=== PATIENT | male | born 1995 | race African-American/Black ===

== ENCOUNTER 2016-07-13 17:15 | Emergency (ER) | END 2016-07-13 18:00 | disposition left against medical advice (07) | LOC: ED 17:15 | DX: D57.00 Hb-SS disease with crisis, unspecified (principal) ==

== ENCOUNTER 2016-09-05 14:15 | Inpatient (IN) ==
--- NOTE | 2016-09-05 16:42 | PROVIDER DOCUMENTATION ---
HPI-General Adult <Bushra Vázquez - Last Filed: 09/05/16 16:42> - General Source: patient - History of Present Illness -Gen Adult Nature of Presenting Problems: Pt is a 21 y/o AA male chief complaint of lower lumbar back pain and cough and cold symptoms that he believes are related to his sickle cell disease. Pt was last discharged from this hospital 12 days ago after a 2 day treatment for sickle cell crisis. Pt has a long h/o sickle cell dz but does not often come to the hospital. He is managed by Dr. Benedict (Heme/Onc). On arrival, pt is afebrile and in minimal distress. <Phil Butts - Last Filed: 09/05/16 18:49> - General Chief Complaint: Sickle Cell Crisis Stated Complaint: SICKLE CELL/ FLU SX Time Seen by Provider: 09/05/16 16:38 Allergies/Adverse Reactions: Patient Allergies Allergy/AdvReac Type Severity Reaction Status Date / Time adhesive tape Allergy Mild RASH Verified 09/05/16 16:26 latex Allergy Mild RASH Verified 09/05/16 16:26 meperidine [Meperidine] Allergy Mild ITCHING Verified 09/05/16 16:26 morphine Allergy Mild ITCHING Verified 09/05/16 16:26 Home Medications: Home Medication List Medication Instructions Recorded Confirmed Last Taken Type No Home Medications 09/05/16 09/05/16 Unknown History Review of Systems - Adult - REVIEW OF SYSTEMS - ADULT Constitutional: reports: no symptoms reported. denies: chills, fatique Eyes: reports: no symptoms reported. denies: blurred vision, double vision Ears, Nose, Mouth & Throat: reports: no symptoms reported. denies: ear pain, nose pain, throat swelling Cardiovascular: reports: chest pain. denies: orthopnea Respiratory: reports: cough, shortness of breath, wheezing Gastrointestinal: reports: no symptoms reported. denies: abdominal pain, nausea Genitourinary: reports: no symptoms reported. denies: dysuria, hematuria Musculoskeletal: reports: bone pain, back pain, muscle aches. denies: joint pain, joint swelling Integumentary: reports: no symptoms reported. denies: hives, itching Neurological: reports: no symptoms reported. denies: numbness, paresthesia Psychiatric: reports: no symptoms reported. denies: anxiety, emotional problems Endocrine: reports: no symptoms reported. denies: cold intolerance, heat intolerance Hematologic/Lymphatic: reports: no symptoms reported. denies: blood clots, low blood count Allergic/Immunologic: reports: no symptoms reported. denies: allergic reactions , food allergy All Other Systems: Reviewed and Negative <Phil Butts - Last Filed: 09/05/16 18:49> Past History - Adult - PAST MEDICAL HISTORY-ADULT Review of Records: reports: Nursing Assessment Review Respiratory: reports: asthma Musculoskeletal: reports: other (AVN R hip) Endocrine/Immune: reports: Sickle Cell disease Sickle Cell Genotype:: SC - PRIOR SURGERIES/PROCEDURES Surgical/Procedure History: reports: cholecystectomy - IMMUNIZATION STATUS Childhood Immunizations: See Nurse Assessment Flu Vaccine: See Nurse Assessment - FAMILY HISTORY Family History: sickle cell disease/trait <Bushra Vázquez - Last Filed: 09/05/16 16:42> - PAST MEDICAL HISTORY-ADULT Review of Records: reports: Old Records Reviewed, Nursing Assessment Review, Medications Reviewed, Social history reviewed & non-contributory. Major Childhood Illnesses: reports: denies history Cardiovascular: reports: denies history Respiratory: reports: asthma Gastrointestinal: reports: denies history Obstetrical/Gynecological: reports: denies history Genitourinary: reports: denies history Musculoskeletal: reports: denies history Neurological: reports: denies history Endocrine/Immune: reports: Sickle Cell disease Other Conditions: reports: denies history - PRIOR SURGERIES/PROCEDURES Surgical/Procedure History: reports: none - IMMUNIZATION STATUS Childhood Immunizations: See Nurse Assessment Flu Vaccine: See Nurse Assessment - FAMILY HISTORY Family History: reviewed, not pertinent - SOCIAL HISTORY Smoking: denies Substance Use: none/never Alcohol Use Frequency: never Number of drinks per typical drinking period:: 2 drinks Living Situation: family <Phil Butts - Last Filed: 09/05/16 18:49> Physical Exam-General - PHYSICAL EXAM-ADULT Initial Vital Signs Reviewed: Yes - CONSTITUTIONAL General Appearance: appears well, alert, no apparent distress - EYES Eyes: PERRL/EOMI, pink conjunctivae - HEAD, EARS, NOSE, MOUTH & THROAT HENMT: normocephalic/atraumatic, moist mucous membranes, normal ENT inspection - NECK Neck: non-tender - RESPIRATORY Respiratory: chest non-tender, wheezing - CARDIOVASCULAR Cardiovascular: normal peripheral pulses, regular rate, rhythm, no edema - GASTROINTESTINAL (ABDOMEN) Abdominal Exam: normal bowel sounds, non tender, soft - MUSCULOSKELETAL Back Exam: decreased range of motion, muscle spasm, vertebral tenderness. negative: swelling Extremity: normal range of motion, non-tender, normal gait - SKIN Integumentary: normal color, normal turgor, warm/dry - NEUROLOGIC Neurologic: grossly normal, no motor/sensory deficits <Phil Butts - Last Filed: 09/05/16 18:49> Progress - PLAN OF CARE/RESULTS Progress/Plan/Lab Results: Orders Category Date Time Status CBC WITH ELECTRONIC DIFF [HEME] Stat Lab 09/05/16 16:08 Results COMPREHENSIVE METABOLIC PANEL [CHEM] Stat Lab 09/05/16 16:08 Received Flu Swab [INFLUENZA SCREEN A/B] Stat Lab 09/05/16 14:29 Received RETIC COUNT [HEME] Stat Lab 09/05/16 16:08 Results UA Reflex [URINALYSIS W/POSS RFLX CULT] [URINALYSIS] Lab 09/05/16 14:46 Uncollected Stat Vital Signs - 24 hr 09/05/16 14:27 Temperature 98.7 F Pulse Rate 107 H Respiratory 22 Rate Blood Pressure 119/60 O2 Sat by Pulse 100 Oximetry <Bushra Vázquez - Last Filed: 09/05/16 16:42> - PLAN OF CARE/RESULTS Progress/Plan/Lab Results: Orders Category Date Time Status Oxygen Therapy- ED Nursing DIRECTED Care 09/05/16 16:44 Active CHEST-2 VIEWS [RAD] Stat Exams 09/05/16 17:59 Taken BLOOD CULTURE [BLDCUL] Stat Lab 09/05/16 18:20 Uncollected CBC WITH ELECTRONIC DIFF [HEME] Stat Lab 09/05/16 16:08 Completed COMPREHENSIVE METABOLIC PANEL [CHEM] Stat Lab 09/05/16 16:08 Completed DIRECT STREP Stat Lab 09/05/16 14:29 Completed Flu Swab [INFLUENZA SCREEN A/B] Stat Lab 09/05/16 14:29 Completed RETIC COUNT [HEME] Stat Lab 09/05/16 16:08 Completed UA Reflex [URINALYSIS W/POSS RFLX CULT] [URINALYSIS] Lab 09/05/16 17:53 Completed Stat 0.9% Sodium Chloride Inj [Ns] 1,000 ml Med 09/05/16 16:44 Discontinued IV 999 mls/hr Albuterol 2.5MG/Ipratrop 0.5MG [Duoneb (A & A)] Med 09/05/16 18:22 Discontinued 6 ml INH NOW ONE CefTRIAXONE 1 GM/NS [Rocephin 1 gm/Ns] 50 ml Med 09/05/16 18:20 Discontinued IV NOW Dexamethasone [Decadron] Med 09/05/16 18:20 Discontinued 10 mg IV NOW ONE Hydromorphone [Dilaudid] Med 09/05/16 16:44 Discontinued 1 mg IV NOW ONE Promethazine [Phenergan] Med 09/05/16 16:44 Discontinued 12.5 mg IV NOW ONE Sodium Chloride 0.9% Med 09/05/16 16:44 Discontinued 10 ml INJ NOW ONE Aerosol Treatments Routine Oth 09/05/16 18:22 Completed Aerosol Treatments Stat Oth 09/05/16 18:22 Completed Transfer/Admit Order [TRANSFER] Routine Transfer 09/05/16 18:42 Ordered Laboratory Tests 09/05/16 09/05/16 09/05/16 16:08 16:08 17:53 WBC 21.81 H RBC 4.46 L Hgb 10.1 L Hct 29.4 L MCV 65.9 L MCH 22.6 L MCHC 34.4 RDW Std Deviation 22.7 H Plt Count 361 MPV 9.1 Neut % (Auto) Not Reportable Lymph % (Auto) Not Reportable Saline % (Auto) Not Reportable Eos % (Auto) Not Reportable Baso % (Auto) 0.1 Neut # (Auto) Not Reportable Lymph # (Auto) Not Reportable Saline # (Auto) Not Reportable Eos # (Auto) Not Reportable Baso # (Auto) 0.03 Corrected WBC (Man) 16.60 Segmented Neutrophils 84 H Band Neutrophils 1 Lymphocytes 7 L Monocytes 8 Nucleated RBCs 31 H Poikilocytosis 1+ Anisocytosis 3+ Sickle Cells OCCASIONAL Target Cells 3+ Percent Retic 6.26 H Retic Hgb Equivalent 24.0 L Sodium 139 Potassium 3.9 Chloride 101 Carbon Dioxide 21 L Anion Gap 17 BUN 6 L Creatinine 0.6 L Estimated GFR/1.73 m2 > 60 BUN/Creatinine Ratio 10 Glucose 85 Calculated Osmolality 274 Calcium 9.4 Total Bilirubin 4.36 H AST 26 ALT 17 Alkaline Phosphatase 75 Total Protein 8.4 H Albumin 4.8 Globulin 3.6 Albumin/Globulin Ratio 1.3 Urine Source CLEAN CATCH Urine Color YELLOW Urine Turbidity CLEAR Urine pH 7.0 Ur Specific [place] 1.010 Urine Protein NEGATIVE Ur Glucose (Stick) NEGATIVE Ur Ketones (Stick) NEGATIVE Urine Blood NEGATIVE Urine Nitrite NEGATIVE Urine Bilirubin NEGATIVE Urobilinogen Dipstick 2 A Urine Leukocytes NEGATIVE Urine WBC (Auto) <10 Urine RBC (Auto) <10 U Epithel Cells (Auto) <10 Urine Bacteria (Auto) NEGATIVE Vital Signs - 24 hr 09/05/16 09/05/16 09/05/16 14:27 18:01 18:34 Temperature 98.7 F 99.5 F Pulse Rate 107 H 107 H 100 H Respiratory 22 20 16 Rate Blood Pressure 119/60 120/78 O2 Sat by Pulse 100 98 99 Oximetry - XRAY 1 XRAY Study: Chest Impression: Normal XRAY Interpretation: NO PNA - CONSULTS/PCP/HOSPITALIST Notification #1 *Consult/PCP/Hospitalist*: Dr. Mueller (Hospitalist) Time Discussed: 18:43 Reason/Comments: Will see in the ER and admit and send to [facility] <Phil Butts - Last Filed: 09/05/16 18:49> Departure <Bushra Vázquez - Last Filed: 09/05/16 16:42> - Departure Time of Disposition Order: 18:43 Certified Medical Emergency: Emergent <Phil Butts - Last Filed: 09/05/16 18:49> - Departure DIAGNOSIS: Sickle cell crisis Leukocytosis Qualifiers: Leukocytosis type: unspecified Qualified Code(s): D72.829 - Elevated white blood cell count, unspecified Disposition: ADMITTED INPATIENT 09 Condition: Stable Attestation - Scribe Verification/Attestation Scribe:: Bushra Vázquez Acting as Scribe for:: Phil Butts Scribe documention review:: This chart was documented by a scribe and accurately reflects the service the provider performed and the decisions made by the provider. <Bushra Vázquez - Last Filed: 09/05/16 16:42> - Physician/ ADOLFO Attestation Patient care was provided by Advanced Practice Provider:: Yes Advanced Practice Provider:: Phil Butts Advanced Practice Provider documentation review:: The Mid-level provider documentation, treatment plan and medical decision making was reviewed by the physician who agrees with all treatment and medical decision making by the MLP. <Phil Butts - Last Filed: 09/05/16 18:49> Physician Attestation - Physician Attestation I, the provider, attest to the following statement:: Phil Butts Physician documentation Attestation:: This documentation recorded by the scribe accurately reflects the service I personally performed and the decisions made by me. <Phil Butts - Last Filed: 09/05/16 18:49>
[2016-09-05] MEDS ORDERED: DILAUDID IV ONE ×2 (16:44→19:42)
[2016-09-05] MEDS ORDERED: PHENERGAN IV ONE (16:44)
[2016-09-05] MEDS ORDERED: SODIUM CHLORIDE 0.9% INJ ONE (16:44)
[2016-09-05] MEDS ORDERED: NS 1,000 ML IV ONE (16:44)
[2016-09-05 16:49] LABS: BASO% 0.1 % (0.0-0.8); HEMATOCRIT 29.4 % (42.0-52.0); HEMOGLOBIN 10.1 g/dL (14.0-18.0); MANUAL DIFF NEEDED? YES; MCH 22.6 PG (27-31); MCHC 34.4 g/dL (33-37); MCV 65.9 FL (81-99); MPV 9.1 FL (7.4-10.4); PLT 361 X1000 (130-400); RBC 4.46 XMIL (4.7-6.1); RETIC% 6.26 % (0.8-2.1)
[2016-09-05 17:04] LABS: BANDS 1 % (0-1); LYMPHS 7 % (21-51); MONO 8 % (1-9); NRBC 31 % (0-0)
[2016-09-05 17:05] LABS: TARGET CELLS 3+
[2016-09-05 17:13] LABS: AGAP 17; ALBUMIN 4.8 g/dL (3.5-5.0); ALKALINE PHOSPHATASE 75 U/L (32-122); BUN 6 mg/dL (8-22); CALCIUM 9.4 mg/dL (8.8-10.2); CHLORIDE 101 mmol/L (98-107); COSMO 274; GOT 26 U/L (10-34); GPT 17 U/L (10-44); POTASSIUM 3.9 mmol/L (3.5-5.1); SODIUM 139 mmol/L (136-145); TCO2 21 mmol/L (25-35); TOTAL BILIRUBIN 4.36 mg/dL (0.20-1.00); TOTAL PROTEIN 8.4 g/dL (6.3-8.3)
[2016-09-05 17:58] LABS: URINE CULTURE NEEDED? NO; URINE MICRO REVIEW NEEDED? NO; URINE SOURCE CLEAN CATCH
[2016-09-05 18:03] LABS: BILIRUBIN URINE NEGATIVE (NEGATIVE); BLOOD URINE NEGATIVE (NEGATIVE); COLOR YELLOW; GLUCOSE URINE NEGATIVE (NEGATIVE); LEUKOCYTES URINE NEGATIVE (NEGATIVE); NITRITE URINE NEGATIVE (NEGATIVE); PROTEIN URINE NEGATIVE (NEGATIVE); TURBIDITY URINE CLEAR (CLEAR); UROBILINOGEN URINE 2 mg/dL (NORMAL)
[2016-09-05 18:04] LABS: UR EPITHELIAL CELLS <10 /HPF (<10); URINE BACTERIA NEGATIVE /HPF; URINE RBC <10 /HPF (<10); URINE WBC <10 /HPF (<10)
[2016-09-05] MEDS ORDERED: DECADRON IV ONE (18:20)
[2016-09-05] MEDS ORDERED: ROCEPHIN 1 GM/NS 50 ML IV ONE (18:20)
[2016-09-05] MEDS ORDERED: DUONEB (A & A) INH ONE (18:22)
[2016-09-05] MEDS ORDERED: TYLENOL PO ONE (19:43)
[2016-09-05] MEDS ORDERED: TYLENOL PO PRN (20:29)
[2016-09-05] MEDS ORDERED: ZOFRAN IV PRN (20:29)
[2016-09-05] MEDS: NS 1,000 ML IV SCH ×2 (21:38)
[2016-09-05] MEDS: BENADRYL IV PRN (23:15)
[2016-09-05] MEDS: DILAUDID IV PRN (23:16)
--- NOTE | 2016-09-05 23:34 | HISTORY AND PHYSICAL ---
CHIEF COMPLAINT: Back pain which is his common symptom and diffuse myalgias. HISTORY OF PRESENT ILLNESS: This is a 21-year-old male who comes in from home with known sickle cell crisis. He was here earlier this month with sickle cell crisis. Complaining of back pain which is his typical pain associated with sickle cell crisis. He has had upper respiratory type symptoms for the last several days, subjective fevers. He has been coughing with productive sputum. When he was here last he had basically same process sickle cell crisis and those issues. PAST MEDICAL HISTORY: Sickle cell disease, asthma, avascular necrosis. PAST SURGICAL HISTORY: 1. He has had cholecystectomy. 2. He has retinopathy and laser therapy. SOCIAL HISTORY: No tobacco, occasional tobacco about half a pack a day. No alcohol. FAMILY HISTORY: Two siblings with also sickle cell disease. MEDICATIONS: He is on folic acid and [place] which he should be on hydroxyurea. For some reason he has not been taking that medication. REVIEW OF SYSTEMS: Otherwise negative. PHYSICAL EXAMINATION: VITAL SIGNS: Blood pressure 120/78, heart rate of 100, respiratory 16, temperature 99.5 degrees, 99% on room air. GENERAL: Thin male in no acute distress. HEENT: Head normocephalic, atraumatic. Pupils equal, round, reactive to light. Extraocular movements were intact. He had moist mucous membranes. NECK: Supple. CARDIOVASCULAR EXAM: Was tachycardic and hyperdynamic. PULMONARY EXAM: Bilateral breath sounds without significant pathology noted abnormality. GI: Was soft, nontender, nondistended. Bowel sounds are positive. EXTREMITIES: No clubbing or cyanosis. LYMPHATICS: No peripheral edema. NEUROLOGICAL: Nonfocal. LABORATORY DATA: Showed reticulocyte count around 6% which is a little higher than it has been previously, hemoglobin and hematocrit is up to 10 and 29 but his white count is 21,000 although no bands mostly pure neutrophilia. Chemistries unremarkable. Chest x-ray reported clear. Urine is clear. PROBLEM LIST: 1. Sickle cell crisis. Will continue hydration, fluids, pain control and follow. 2. Leukocytosis without a clear defined etiology. We will continue his regular medications. I think will start hydroxyurea if I can if he does not I guess object. 3. Anemia. Actually appears to be fairly stable. Will continue to monitor. We will start empiric antibiotics and follow closely.
[2016-09-06] MEDS: BENADRYL IV PRN ×6 (02:40→23:13)
[2016-09-06] MEDS: DILAUDID IV PRN ×6 (02:41→23:13)
[2016-09-06 06:21] LABS: HEMATOCRIT 28.1 % (42.0-52.0); HEMOGLOBIN 9.3 g/dL (14.0-18.0); MCH 22.3 PG (27-31); MCHC 33.1 g/dL (33-37); MCV 67.4 FL (81-99); MPV 9.4 FL (7.4-10.4); RBC 4.17 XMIL (4.7-6.1)
[2016-09-06 06:35] LABS: AGAP 12; BUN 5 mg/dL (8-22); CALCIUM 9.2 mg/dL (8.8-10.2); CHLORIDE 103 mmol/L (98-107); COSMO 272; POTASSIUM 3.8 mmol/L (3.5-5.1); SODIUM 137 mmol/L (136-145); TCO2 22 mmol/L (25-35)
--- NOTE | 2016-09-06 06:43 | Diag Imaging Result Document ---
PROCEDURE NAME: CHEST-2 VIEWS - 09/05/2016 FRONTAL AND LATERAL CHEST, TWO VIEWS: COMPARISON: Compared to 03/01/2016. FINDINGS: The lungs are well expanded. The heart is not enlarged. The vessels are not distended. There are no infiltrates. No pleural effusions. Mild scoliosis. IMPRESSION: No pneumonia.
[2016-09-06] MEDS: HYDREA PO SCH (10:07)
[2016-09-06] MEDS: NS 1,000 ML IV SCH ×3 (10:08→20:14)
[2016-09-06] MEDS ORDERED: ROBITUSSIN-AC PO ONE (11:59)
[2016-09-06] MEDS ORDERED: ROBITUSSIN-AC PO PRN (11:59)
--- NOTE | 2016-09-06 12:32 | PROGRESS NOTE ---
DATE: 09/06/2016 CHIEF COMPLAINT: Chest pain. SUBJECTIVE: The patient has no focal complaints except for cough, shortness of breath, and diffuse pain in his back. OBJECTIVE: Vital Signs: Blood pressure 97/51, heart rate 72, respiratory rate 18, temperature 98.7 degrees. T-max was 102.1 degrees. Cardiovascular: Tachycardic. Pulmonary: Bilateral breath sounds. Clear to auscultation. Gastrointestinal: Soft, nontender, nondistended. Bowel sounds are positive. Extremities: No clubbing or cyanosis. Lymphatics: No peripheral edema. Neurologic: Exam was nonfocal. He had end-expiratory wheezes noted throughout his lung tsai. LABORATORY DATA: White count is still elevated at 19,000, hemoglobin and hematocrit 9 and 28, platelets of 240,000. Chest x-ray is clear. PROBLEM LIST: 1. Sickle cell crisis. We will continue IV fluids, O2, pain control. 2. Bronchitis, possibly early pneumonia. We will continue antibiotics. We will add breathing treatments and follow clinically. White count is down a little bit. I am going to repeat his films tomorrow, plain films, and see how he does. If he has persistent fevers, we may need ID consultation. 3. Anemia is actually pretty well stable despite his sickle cell disease. We will continue to monitor.
[2016-09-06] MEDS: DUONEB (A & A) INH SCH ×2 (15:10→22:25)
[2016-09-06] MEDS: ROCEPHIN 1 GM/NS 50 ML IV SCH (20:14)
[2016-09-07] MEDS: DUONEB (A & A) INH SCH ×5 (03:11→22:30)
[2016-09-07] MEDS: BENADRYL IV PRN ×5 (03:29→20:17)
[2016-09-07] MEDS: DILAUDID IV PRN ×5 (03:29→20:17)
[2016-09-07] MEDS: NS 1,000 ML IV SCH ×3 (06:30→18:52)
[2016-09-07 06:45] LABS: AGAP 11; BUN 6 mg/dL (8-22); CALCIUM 8.6 mg/dL (8.8-10.2); CHLORIDE 102 mmol/L (98-107); COSMO 271; POTASSIUM 3.5 mmol/L (3.5-5.1); SODIUM 137 mmol/L (136-145); TCO2 24 mmol/L (25-35)
[2016-09-07 06:54] LABS: HEMATOCRIT 23.8 % (42.0-52.0); MCH 22.5 PG (27-31); MCHC 33.6 g/dL (33-37); MCV 66.9 FL (81-99); MPV 9.2 FL (7.4-10.4); RBC 3.56 XMIL (4.7-6.1)
--- NOTE | 2016-09-07 08:15 | Diag Imaging Result Document ---
PROCEDURE NAME: CHEST-2 VIEWS - 09/07/2016 CHEST X-RAY 2 VIEWS, 09/07/2016: COMPARISON: 09/05/2016. FINDINGS: The lungs are normally expanded and clear. Heart size and mediastinal contours are normal. No pneumothorax or pleural effusion. IMPRESSION: Negative exam.
[2016-09-07] MEDS: HYDREA PO SCH (08:17)
[2016-09-07] MEDS ORDERED: TUSSIONEX LIQUID PO ONE (18:36)
--- NOTE | 2016-09-07 19:04 | PROGRESS NOTE ---
DATE: 09/07/2016 SUBJECTIVE: Patient looks clinically improved. Still with cough though and congestion. OBJECTIVE: Blood pressure 113/65, heart rate of 88, respiratory rate 18, temperature 99.2 degrees. LABORATORY DATA: White count is down to 15 but hemoglobin and hematocrit has dropped to 8 and 23. Platelets of 230,000. PROBLEM LIST: 1. Acute bronchitis. Clinically he has improved on the breathing treatments and Rocephin. He is getting cough syrup but does not seem to be working as well. I am going to schedule some Tussionex and Tessalon Perles. 2. Sickle cell crisis. Again he seems to be doing well from that standpoint. I am going to repeat CBC and reticulocyte count. I think hemoglobin and hematocrit dropping is likely some degree of dilutional and decrease his fluids as well. DISPOSITION: Possibly home in the next 24 hours pending his course.
[2016-09-07] MEDS: ROCEPHIN 1 GM/NS 50 ML IV SCH (20:17)
[2016-09-08] MEDS: BENADRYL IV PRN ×5 (00:11→16:37)
[2016-09-08] MEDS: DILAUDID IV PRN ×5 (00:11→16:37)
[2016-09-08] MEDS: DUONEB (A & A) INH SCH ×3 (04:11→16:04)
[2016-09-08] MEDS ORDERED: TUSSIONEX LIQUID PO SCH (06:00)
[2016-09-08 06:19] LABS: HEMATOCRIT 25.9 % (42.0-52.0); HEMOGLOBIN 8.8 g/dL (14.0-18.0); MCH 22.6 PG (27-31); MCV 66.6 FL (81-99); MPV 9.4 FL (7.4-10.4); RBC 3.89 XMIL (4.7-6.1); RETIC% 5.62 % (0.8-2.1); RETIC-HE 21.5 PG (28.2-36.6)
[2016-09-08] MEDS: NS 1,000 ML IV SCH (08:13)
[2016-09-08] MEDS: HYDREA PO SCH (08:17)
[2016-09-08 14:08] VITALS: BP 116/71
--- NOTE | 2016-09-08 17:01 | DISCHARGE SUMMARY ---
ADMISSION DATE: 09/05/2016 DISCHARGE DATE: DISCHARGE DIAGNOSES: 1. Sickle cell crisis. 2. Bronchitis, acute tracheobronchitis presumed bacterial infection. 3. Anemia associated with sickle cell disease. DISCHARGE DIAGNOSES: 1. Sickle cell crisis. 2. Bronchitis, acute tracheobronchitis presumed bacterial infection. 3. Anemia associated with sickle cell disease. Briefly this is a 21-year-old male with sickle cell disease who comes in for cough and congestion and back pain which is his typical sickle cell pain crisis equivalent. He had a profound leukocytosis when he came in around 21,000 and no clear source. Urine was clear. Chest x-ray was clear but he did have a fairly productive cough. He was empirically placed on antibiotics. We had a repeat chest x-ray done the next day. Still no infiltrates. He had some wheezing on exam consistent with an asthma exacerbation associated with his bronchitis. He was placed on nebs, hydration, Rocephin. Clinically improved. The day before discharge white count was down to 12.5, hemoglobin and hematocrit was 8.8 and 25.9. His reticulocyte count was down to 5.6. On the day of discharge, he was breathing comfortably on room air 100%. Still had some cough but had overall improved and was felt stable for discharge. DISCHARGE MEDS: Hydrea 500 daily, Omnicef 300 p.o. b.i.d. for 7 days, Tussionex 5 mL q.12 hours p.r.n. cough, Ventolin inhaler 2 puffs t.i.d. DISCHARGE CONDITION: Stable. Follow up in 1-2 weeks. Return for worsening shortness of breath or pain. 32 minute discharge.
== END 2016-09-08 17:35 | disposition home or self-care (01) | DRG 812 ==
LOC: ED 14:15 → OBSVTOIN 19:10 → P.MEDSURG 19:10
PROVIDERS: ATTEND Internal Medicine
DX: D57.00 Hb-SS disease with crisis, unspecified (principal); J45.901 Unspecified asthma with (acute) exacerbation; F17.210 Nicotine dependence, cigarettes, uncomplicated; T45.1X6A Underdosing of antineoplastic and immunosuppressive drugs, initial encounter; J20.9 Acute bronchitis, unspecified; Z79.899 Other long term (current) drug therapy
CPT/HCPCS: 36415; 71020; 80048; 80053; 81001; 85025; 85027; 85045; 87040; 87070; 87081; 87205; 87430; 87804; 89220; 94640; 94761; 94799; 96361; 96365; 96375; 96376; J0696; J1170; J1200; J2550; J7030

== ENCOUNTER 2016-11-01 14:47 | Inpatient (IN) ==
[2016-11-01] MEDS ORDERED: NS 1,000 ML IV ONE ×2 (16:14→16:17)
[2016-11-01] MEDS ORDERED: SODIUM CHLORIDE 0.9% INJ ONE (16:15)
[2016-11-01] MEDS ORDERED: PHENERGAN IV ONE (16:15)
[2016-11-01] MEDS ORDERED: DILAUDID IV ONE ×2 (16:16→19:50)
[2016-11-01 19:17] LABS: HEMATOCRIT 25.6 % (42.0-52.0); HEMOGLOBIN 8.8 g/dL (14.0-18.0); MANUAL DIFF NEEDED? YES; MCH 22.4 PG (27-31); MCHC 34.4 g/dL (33-37); MCV 65.3 FL (81-99); MPV 8.9 FL (7.4-10.4); PLT 341 X1000 (130-400); RBC 3.92 XMIL (4.7-6.1)
[2016-11-01 19:37] LABS: AGAP 17; ALBUMIN 4.4 g/dL (3.5-5.0); ALKALINE PHOSPHATASE 70 U/L (32-122); BUN 4 mg/dL (8-22); CALCIUM 8.9 mg/dL (8.8-10.2); CHLORIDE 105 mmol/L (98-107); COSMO 282; GOT 31 U/L (10-34); GPT 21 U/L (10-44); POTASSIUM 3.3 mmol/L (3.5-5.1); SODIUM 143 mmol/L (136-145); TCO2 21 mmol/L (25-35); TOTAL PROTEIN 7.9 g/dL (6.3-8.3)
[2016-11-01] MEDS ORDERED: BENADRYL IV ONE (19:50)
[2016-11-01 20:12] LABS: RETIC% 6.79 % (0.8-2.1); RETIC-HE 24.5 PG (28.2-36.6)
[2016-11-01 20:19] LABS: BANDS 1 % (0-1); EOS 1 % (1-10); LYMPHS 34 % (21-51); MONO 4 % (1-9); NRBC 36 % (0-0)
[2016-11-01 20:20] LABS: TARGET CELLS 2+
[2016-11-01] MEDS ORDERED: ROCEPHIN 1 GM/NS 1 GM/50 ML IVPB IV ONE (21:30)
--- NOTE | 2016-11-01 21:32 | PROVIDER DOCUMENTATION ---
This chart was entered by Cyndy Gomez Scribe, acting as scribe for Phil Butts PA. HPI-General Adult - General Chief Complaint: Sickle Cell Crisis Stated Complaint: SICKLE CELL PAIN Time Seen by Provider: 11/01/16 16:14 Source: patient Allergies/Adverse Reactions: Patient Allergies Allergy/AdvReac Type Severity Reaction Status Date / Time adhesive tape Allergy Mild RASH Verified 11/01/16 19:25 latex Allergy Mild RASH Verified 11/01/16 19:25 meperidine [Meperidine] Allergy Mild ITCHING Verified 11/01/16 19:25 morphine Allergy Mild ITCHING Verified 11/01/16 19:25 Home Medications: Home Medication List Medication Instructions Recorded Confirmed Last Taken Type Albuterol Sulfate Inhaler 2 puff INH TID #1 inhaler 09/08/16 11/01/16 11/01/16 Rx [Ventolin Hfa] Hydroxyurea 500 mg PO DAILY #30 capsule 09/08/16 11/01/16 11/01/16 Rx - History of Present Illness -Gen Adult Nature of Presenting Problems: 21 year old M presents to the ED with a cc of lower back pain, bilateral lower leg pain, and left leg pain with an onset of this morning. Pt states that this is typical of his sickle cell pain. Location of Pain/Injury: reports: upper extremity, back, lower extremity Quality of Pain: reports: aching Severity: reports: mild Onset/Duration: reports: this morning Similar Symptoms Previously?: Yes Recently seen or treated by another doctor?: Yes - Sickle Cell Pain Related Context Sickle Cell Pain Location: reports: upper extremity, back, lower extremity Is this pain typical of prior episodes of crisis?: Yes Review of Systems - Adult - REVIEW OF SYSTEMS - ADULT Constitutional: denies: chills, fever Eyes: reports: no symptoms reported Ears, Nose, Mouth & Throat: reports: no symptoms reported Cardiovascular: denies: chest pain, palpitations Respiratory: denies: cough, shortness of breath Gastrointestinal: reports: no symptoms reported Genitourinary: reports: no symptoms reported Musculoskeletal: reports: bone pain, back pain, muscle aches. denies: muscle weakness Integumentary: reports: no symptoms reported Neurological: reports: no symptoms reported Psychiatric: reports: no symptoms reported Endocrine: reports: no symptoms reported Hematologic/Lymphatic: reports: no symptoms reported Allergic/Immunologic: reports: no symptoms reported All Other Systems: Reviewed and Negative Past History - Adult - PAST MEDICAL HISTORY-ADULT Review of Records: reports: Nursing Assessment Review, Medications Reviewed Major Childhood Illnesses: reports: denies history Cardiovascular: reports: denies history Respiratory: reports: asthma Gastrointestinal: reports: denies history Obstetrical/Gynecological: reports: denies history Genitourinary: reports: denies history Musculoskeletal: reports: denies history Neurological: reports: denies history Endocrine/Immune: reports: Sickle Cell disease Sickle Cell Genotype:: SC Other Conditions: reports: denies history - PRIOR SURGERIES/PROCEDURES Surgical/Procedure History: reports: none - IMMUNIZATION STATUS Childhood Immunizations: See Nurse Assessment Flu Vaccine: See Nurse Assessment - FAMILY HISTORY Family History: reviewed, not pertinent - SOCIAL HISTORY Smoking: cigarettes Provider spent 3-5 mins advising pt. on dangers of tobacco.: Discussed manners to quit use, and f/u contacts for add'l counseling. Substance Use: none/never Alcohol Use Frequency: never Physical Exam-General - PHYSICAL EXAM-ADULT Initial Vital Signs Reviewed: Yes - CONSTITUTIONAL General Appearance: alert, mild distress - RESPIRATORY Respiratory: chest non-tender, lungs clear, normal breath sounds - CARDIOVASCULAR Cardiovascular: tachycardia - GASTROINTESTINAL (ABDOMEN) Abdominal Exam: non tender, soft - SKIN Integumentary: normal color, normal turgor, warm/dry - PSYCHIATRIC Psych/Mental Status: normal mood/affect, normal thought content, normal thought process, oriented x 3 Progress - PLAN OF CARE/RESULTS Progress/Plan/Lab Results: Vital Signs - 8 hr 11/01/16 15:05 11/01/16 19:24 Temperature 98 F Pulse Rate 71 113 H Respiratory Rate 16 20 Blood Pressure 120/66 121/76 O2 Sat by Pulse Oximetry 100 100 Laboratory Results - last 24 hr 11/01/16 11/01/16 19:01 19:01 WBC 26.54 H RBC 3.92 L Hgb 8.8 L Hct 25.6 L MCV 65.3 L MCH 22.4 L MCHC 34.4 RDW Std Deviation 22.9 H Plt Count 341 MPV 8.9 Neut % (Auto) Not Reportable Lymph % (Auto) Not Reportable [place] % (Auto) Not Reportable Eos % (Auto) Not Reportable Baso % (Auto) Not Reportable Neut # (Auto) Not Reportable Lymph # (Auto) Not Reportable [place] # (Auto) Not Reportable Eos # (Auto) Not Reportable Baso # (Auto) Not Reportable Sodium 143 Potassium 3.3 L Chloride 105 Carbon Dioxide 21 L Anion Gap 17 BUN 4 L Creatinine 0.6 L Estimated GFR/1.73 m2 > 60 BUN/Creatinine Ratio 7 Glucose 99 Calculated Osmolality 282 Calcium 8.9 Total Bilirubin 2.40 H AST 31 ALT 21 Alkaline Phosphatase 70 Total Protein 7.9 Albumin 4.4 Globulin 3.5 Albumin/Globulin Ratio 1.3 Orders Category Date Time Status CHEST-2 VIEWS [RAD] Stat Exams 11/01/16 19:52 Ordered BLOOD CULTURE [BLDCUL] Stat Lab 11/01/16 16:15 Ordered CBC WITH ELECTRONIC DIFF [HEME] Stat Lab 11/01/16 19:01 Results CMP [COMPREHENSIVE METABOLIC PANEL] [CHEM] Stat Lab 11/01/16 19:01 Completed CRP [C REACTIVE PROT QUANT] [CHEM] Stat Lab 11/01/16 19:52 Ordered RETIC COUNT [HEME] Stat Lab 11/01/16 19:51 Ordered UA NIMS W/REFLEX CULT [URINALYSIS] Stat Lab 11/01/16 16:17 Uncollected 0.9% Sodium Chloride Inj [Ns] 1,000 ml Med 11/01/16 16:17 Active IV 150 mls/hr 0.9% Sodium Chloride Inj [Ns] 1,000 ml Med 11/01/16 16:14 Discontinued IV 999 mls/hr Diphenhydramine [Benadryl] Med 11/01/16 19:50 Discontinued 25 mg IV NOW ONE Hydromorphone [Dilaudid] Med 11/01/16 16:16 Discontinued 1 mg IV NOW ONE Hydromorphone [Dilaudid] Med 11/01/16 19:50 Discontinued 1 mg IV NOW ONE Promethazine [Phenergan] Med 11/01/16 16:15 Discontinued 25 mg IV NOW ONE Sodium Chloride 0.9% Med 11/01/16 16:15 Discontinued 10 ml INJ NOW ONE Result Diagrams: 11/01/16 19:01 11/01/16 19:01 - CONSULTS/PCP/HOSPITALIST Notification #1 *Consult/PCP/Hospitalist*: Dr. Benedict Time Discussed: 21:23 Reason/Comments: Recommend admission. #2 Consult: Dr. Riley (Hospitalist) Time Discussed: 21:28 Reason/Comments: Will see pt in the ER Departure - Departure Time of Disposition Decision: 21:31 DIAGNOSIS: Leukocytosis Qualifiers: Leukocytosis type: unspecified Qualified Code(s): D72.829 - Elevated white blood cell count, unspecified Disposition: ADMITTED INPATIENT 09 Certified Medical Emergency: Emergent Condition: Stable Referrals and Follow-Ups: None,PCP [Primary Care Provider] - - Critical Care Note This patient required my direct personal management.: Yes Attestation - Physician/ ADOLFO Attestation Patient care was provided by Advanced Practice Provider:: Yes Advanced Practice Provider:: Phil Butts Advanced Practice Provider documentation review:: The Mid-level provider documentation, treatment plan and medical decision making was reviewed by the physician who agrees with all treatment and medical decision making by the MLP. This chart was documented by the indicated scribe, (Cyndy Gomez Scribe) and accurately reflects the services I performed and decisions made by me, Phil Butts PA, as attested by the provider's signature.
[2016-11-01] MEDS ORDERED: DILAUDID IV PRN (22:57)
[2016-11-01 22:59] LABS: URINE CULTURE NEEDED? NO; URINE MICRO REVIEW NEEDED? NO; URINE SOURCE CLEAN CATCH
[2016-11-01 23:05] LABS: BILIRUBIN URINE NEGATIVE (NEGATIVE); BLOOD URINE NEGATIVE (NEGATIVE); COLOR YELLOW; GLUCOSE URINE NEGATIVE (NEGATIVE); LEUKOCYTES URINE NEGATIVE (NEGATIVE); NITRITE URINE NEGATIVE (NEGATIVE); PH URINE 5.5; PROTEIN URINE NEGATIVE (NEGATIVE); SP GRAVITY URINE 1.007; TURBIDITY URINE CLEAR (CLEAR); UROBILINOGEN URINE NORMAL (NORMAL)
[2016-11-01 23:06] LABS: UR EPITHELIAL CELLS <10 /HPF (<10); URINE BACTERIA NEGATIVE /HPF; URINE RBC <10 /HPF (<10); URINE WBC <10 /HPF (<10)
[2016-11-02] MEDS ORDERED: NS 1,000 ML IV ONE ×2 (00:02)
[2016-11-02] MEDS: NS 1,000 ML IV SCH ×2 (01:38→09:20)
[2016-11-02] MEDS ORDERED: KLOR-CON PO ONE (01:54)
[2016-11-02 02:12] LABS: INR 1.06; PROTIME 11.2 Seconds (9.2-11.7); PTT 27.3 Seconds (22.0-36.0)
[2016-11-02] MEDS ORDERED: ZOFRAN IV PRN (02:38)
[2016-11-02] MEDS ORDERED: TYLENOL PO PRN (02:38)
[2016-11-02] MEDS: DILAUDID IV PRN ×7 (02:49→20:56)
[2016-11-02] MEDS ORDERED: DILAUDID IV ONE (03:33)
--- NOTE | 2016-11-02 03:53 | HISTORY AND PHYSICAL ---
CHIEF COMPLAINT: Low back pain and bilateral leg pain. HISTORY OF PRESENT ILLNESS: Mr. Smith is a 21-year-old male with a known history of sickle cell disease. He reports that he began having low back pain and bilateral lower extremity pain, as well as chest pain, that started this morning. Patient states that his chest pain is substernal and nonradiating. He denies any dizziness, lightheadedness, shortness of breath, or nausea and vomiting. He denies any cough. He denies any fever, body aches, or chills. He also denies any headache, abdominal pain, vomiting, diarrhea, dysuria, or urinary frequency. The patient was last admitted in August 2016 for a sickle cell crisis. Upon evaluation in the ER, he was found to have a leukocytosis, with a white blood cell count of 26.54. Blood cultures were drawn. He was also found to be anemic, with a hemoglobin of 8.8, and a hematocrit of 25.6. His percent reticular count is 6.79. Chest x-ray shows no acute abnormality, but we are awaiting the official radiology over-read. EKG showed sinus tachycardia, at a rate of 105. At this time, we will admit the patient for further treatment and evaluation of his sickle cell crisis. REVIEW OF SYSTEMS: A 12-point review of systems was conducted with the patient. All were negative, except for pertinent positives mentioned above in HPI. PAST MEDICAL HISTORY: 1. Sickle cell disease. 2. Asthma. 3. Avascular necrosis. PAST SURGICAL HISTORY: 1. Cholecystectomy. 2. Retinopathy, with previous laser therapy. SOCIAL HISTORY: The patient reports that he smokes approximately 1/4 pack of cigarettes per day, though he denies any alcohol or illicit drug use. FAMILY HISTORY: The patient does have 2 siblings who also have sickle cell disease. HOME MEDICATIONS: 1. Hydroxyurea 500 mg p.o. daily. 2. Ventolin HFA inhaler, 2 puffs inhaled 3 times a day. ALLERGIES: Patient reports allergies to adhesive tape, latex, Demerol, and morphine. DIAGNOSTIC DATA AND LABORATORY RESULTS: White blood cell count 26.54, hemoglobin 8.8, hematocrit 25.6, platelet count is 341,000. Percent reticular count is 6.79, PT 11.2, INR 1.06, PTT is 27.3. Sodium 143, potassium 3.3, chloride 105, bicarbonate 21. BUN is 4, creatinine 0.6, glucose 99, calcium 8.9. Total bilirubin is 2.4. All other liver function tests within normal limits. C- reactive protein was 7.39. Urinalysis was within normal limits. No signs of infection. It was negative for protein, glucose, ketones, blood, nitrites, leukocytes, or bacteria. As previously mentioned, a chest x-ray showed no acute abnormality, but we are awaiting the official radiology over-read. EKG showed sinus tachycardia, at a rate of 105, with a QTc of 407. PHYSICAL EXAMINATION: VITAL SIGNS: Temperature 99.7 degrees, heart rate 113, respirations 20, blood pressure 121/76. Oxygen saturation is 100%. GENERAL: Mr. Smith is a pleasant 21-year-old male who was resting in the ER stretcher. Though he did report pain, he was in no acute distress. He was awake, alert, and able to answer all questions appropriately. HEENT: Head is atraumatic, normocephalic. Pupils are equal, round, reactive to light, were 3 mm bilaterally and brisk. Sclera were white. No lesions noted. Oral mucosa was slightly dry. Oropharynx was clear. NECK: Supple. Trachea midline. CARDIOVASCULAR: Patient has normal S1, S2. No murmurs, gallops, or rubs appreciated, with a slightly tachycardic rate that is regular. PULMONARY: Patient has symmetrical chest expansion bilaterally. Lung sounds were clear to auscultation in bilateral full tsai. ABDOMEN: Soft, nontender, nondistended. Bowel sounds are present in all 4 quadrants, and were normoactive. EXTREMITIES: No cyanosis, clubbing, or edema noted. Pulse, motor, and sensory were intact in all extremities as well. Pedal pulses were 3+ bilaterally. INTEGUMENTARY: The patient's skin color is normal for his race. It is warm, dry, and intact. No lesions or sores noted. NEUROLOGICAL: Patient is alert, oriented x4. Cranial nerves 2-12 are grossly intact. ASSESSMENT AND PLAN: 1. Sickle cell crisis. At this time, we will monitor him for any cardiovascular or neurovascular changes. We will treat him with oxygen, pain control, and intravenous hydration. The patient did receive a 2 L normal saline bolus in the ER. We will continue with normal saline at 125 mL/h. We have placed a consult with Dr. Cooper, who is the patient's medical record librarian, and will await their evaluation and further recommendations as well. We will also continue his hydroxyurea. 2. Leukocytosis. At this time, there are no signs of infection. Chest x-ray is clear. Patient's urinalysis is negative. We have obtained blood cultures. We have placed the patient on empirical antibiotic coverage with Rocephin 1 g IV q.24 hours. We will continue to rule out any other infectious process, and monitor his condition closely. 3. Anemia. Patient's hemoglobin is 8.8, hematocrit 25.6, which are both just slightly below the patient's baseline, though he is complaining of chest pain at this time. Due to his report of chest pain, we did decide to go ahead and transfuse the patient with 1 unit of packed red blood cells, and we will repeat a CBC in the morning and will continue to follow. Also for further evaluation of the patient's chest pain we have ordered for a troponin, as well as a CK profile to be performed, and we are awaiting these results, at this time. EKG showed no acute findings at this time for acute coronary syndrome. 4. Hypokalemia. We have ordered for the patient to receive 40 mEq of potassium chloride extended release, and will repeat a BMP in the morning. 5. Asthma. Will continue the patient's Ventolin HFA inhaler. 6. Intractable pain. We have placed orders for the patient to receive Dilaudid 1 mg IV q.3 hours for pain, and will continue to follow. 7. Tobacco abuse. We will group home counselor the patient on smoking cessation throughout his admission and upon discharge, and continue to follow. The patient will be placed on the medical floor with telemetry. He will have vital signs q.4 hours. We will do neuro checks q.4 hours as well. DVT prophylaxis provided with SCDs. We did place the patient on empirical antibiotic coverage with Rocephin 1 g IV q.24 hours, and will continue to monitor for any signs of infection. Further orders and recommendations pending hospital course, diagnostic studies, and physician evaluation. Dictated by RAKESH Hester for Carlitos Riley MD cc: MD SENDY Nickerson
[2016-11-02 05:23] LABS: BASO% 0.3 % (0.0-0.8); HEMATOCRIT 22.7 % (42.0-52.0); HEMOGLOBIN 7.9 g/dL (14.0-18.0); MANUAL DIFF NEEDED? YES; MCH 22.8 PG (27-31); MCHC 34.8 g/dL (33-37); MCV 65.4 FL (81-99); MPV 8.7 FL (7.4-10.4); PLT 319 X1000 (130-400); RBC 3.47 XMIL (4.7-6.1)
[2016-11-02 05:30] LABS: AGAP 15; BUN 4 mg/dL (8-22); CALCIUM 8.5 mg/dL (8.8-10.2); CHLORIDE 106 mmol/L (98-107); COSMO 281; POTASSIUM 3.6 mmol/L (3.5-5.1); SODIUM 143 mmol/L (136-145); TCO2 22 mmol/L (25-35)
--- NOTE | 2016-11-02 05:46 | EKG Report ---
Test Performed on : 11/01/2016 11:54:14 PM Test Reason : cp Blood Pressure : / mmHG Vent. Rate : 105 BPM Atrial Rate : 105 BPM P-R Int : 122 ms QRS Dur : 072 ms QT Int : 308 ms P-R-T Axes : 071 018 020 degrees QTc Int : 407 ms Sinus tachycardia. Otherwise normal ECG When compared with ECG of 01-MAR-2016 16:55, Questionable change in QRS axis Unconfirmed Result
[2016-11-02 06:03] LABS: LYMPHS 22 % (21-51); MONO 12 % (1-9); NRBC 12 % (0-0)
--- NOTE | 2016-11-02 06:30 | Diag Imaging Result Document ---
PROCEDURE NAME: CHEST-2 VIEWS - 11/01/2016 FRONTAL AND LATERAL CHEST TWO VIEWS: COMPARISON: Compared to 09/08/2016. FINDINGS: The lungs are well expanded. The heart is not enlarged. The vessels are not distended. There are no infiltrates. No pleural effusions. IMPRESSION: No pneumonia.
[2016-11-02] MEDS: VENTOLIN HFA INH SCH ×2 (07:35→15:00)
[2016-11-02] MEDS: HYDREA PO SCH (08:33)
[2016-11-02] MEDS: OFIRMEV 1000 MG/ISOTONIC SOLN 1,000 MG/100 ML BOTTLE IV SCH ×3 (10:11→20:56)
[2016-11-02] MEDS ORDERED: ROCEPHIN 1 GM/NS 1 GM/50 ML IVPB IV SCH (22:50)
[2016-11-03] MEDS: DILAUDID IV PRN ×3 (00:04→05:45)
[2016-11-03] MEDS: OFIRMEV 1000 MG/ISOTONIC SOLN 1,000 MG/100 ML BOTTLE IV SCH ×2 (02:47→08:46)
[2016-11-03] MEDS ORDERED: DILAUDID IV PRN ×2 (08:12→09:09)
[2016-11-03] MEDS ORDERED: PROTONIX IV SCH (08:30)
[2016-11-03] MEDS ORDERED: TORADOL IV SCH (08:30)
[2016-11-03] MEDS ORDERED: SODIUM CHLORIDE 0.9% INJ SCH (08:30)
[2016-11-03] MEDS ORDERED: SODIUM CHLORIDE 0.9% 10 ML ONE (08:44)
[2016-11-03] MEDS: HYDREA PO SCH (08:47)
[2016-11-03] MEDS: VENTOLIN HFA INH SCH (09:15)
[2016-11-03 09:44] VITALS: BP 121/71
--- NOTE | 2016-11-03 21:19 | CONSULTATION ---
DATE OF CONSULTATION: 11/02/2016 ADMITTING PHYSICIAN: Osvaldo Urbina MD. REQUESTING PHYSICIAN: Osvaldo Urbina MD. We appreciate this consultation. CHIEF COMPLAINT: Sickle cell crisis. HISTORY OF PRESENT ILLNESS: Mr. Smith is a very pleasant, 21-year-old, male, well known to Dr. Cooper, with a known history of sickle cell disease. He presented to clinic yesterday with report of low back pain and bilateral lower extremity pain. The patient was hydrated and given IV pain control. It was recommended that he present to [facility] with continued pain or worsening of pain. The patient presented to [facility] and was found to have leukocytosis with a white blood cell count of 26.54. Blood cultures were obtained. The patient was also found to be anemic with a hemoglobin of 8.8. His reticulocyte count was 6.79. Chest x-ray revealed no acute abnormality. EKG did reveal sinus tachycardia. The patient was admitted for further evaluation. PAST MEDICAL HISTORY: 1. Sickle cell disease. 2. Asthma. 3. Avascular necrosis. PAST SURGICAL HISTORY: 1. Cholecystectomy. 2. Retinopathy with laser therapy. SOCIAL HISTORY: The patient smokes 1/4 pack cigarettes daily. He does not use alcohol or illicit drugs. FAMILY HISTORY: The patient has 2 siblings with sickle cell disease as well as a grandfather with sickle cell disease. MEDICATIONS ON ADMISSION: 1. Hydroxyurea. 2. Ventolin HFA. ALLERGIES: Adhesive tape, latex, Demerol and morphine. REVIEW OF SYSTEMS: A complete review of systems was obtained and is negative except as mentioned in HPI. PHYSICAL EXAMINATION: General: Mr. Smith is a 21-year-old, male, well- developed, well-nourished, lying supine in bed, in no immediate distress. Vital Signs: Temperature 99.3, blood pressure 116/64, heart rate 83, respirations 19, O2 saturation is 97% on 2 L nasal cannula. HEENT: Normocephalic, atraumatic. Mucous membranes are pale and moist. Sclerae is anicteric. Extraocular movements intact. Neck: Supple. Lungs: Clear to auscultation bilaterally. Chest expansion is equal bilaterally. Cardiovascular: S1, S2 is heard without murmur, rub or gallop. Abdomen: Soft, nondistended, nontender. Bowel sounds are positive in all quadrants. No rebound or guarding noted. Extremities: Without clubbing, cyanosis, or edema. Dermatologic: No rashes, bruises or lesions. Neurologic: The patient is awake, alert, and oriented x4. He has no focal deficits at this time. LABORATORY DATA: Hemoglobin 7.9, hematocrit 22.7, white blood cell count 12.72, platelets 319,000. sodium 143, potassium 3.6, chloride 106, C02 is 22, BUN 4, creatinine 0.5, and glucose is 80, reticulocyte count is 6.79. Chest x-ray is negative for pneumonia. ASSESSMENT AND PLAN: 1. Sickle cell crisis with low back and bilateral leg pain. We will continue to follow CBC. Additionally we will increase the patient's Dilaudid to 1-2 mg q. 3-4 hours as needed p.r.n. pain. 2. Anemia secondary to #1. The patient is status post 1 unit of packed red blood cells. We will continue to follow CBC. 3. Leukocytosis. We agree with workup as ordered. We will continue to follow. 4. We will follow along with you and make further recommendations pending outcomes. The above reflects the history, examination, assessment and plan of Dr. Cooper. Dictated by RAKESH Chaidez for Jhony Cooper MD cc: RAKESH Chaidez MD
--- NOTE | 2016-11-04 08:35 | DISCHARGE SUMMARY ---
ADMISSION DATE: 11/02/2016 DISCHARGE DATE: 11/03/2016 PERTINENT PROCEDURES: Chest x-ray. No pneumonia. CONSULTATIONS: None. DISCHARGE DIAGNOSES: 1. Sickle cell crisis resolved. 2. Leukocytosis secondary to sickle cell crisis, improved. 3. Anemia, chronic and stable. 4. Hypokalemia resolved. 5. Asthma without exacerbation. Continue home inhaler. 6. Intractable flank pain. Continue with patient's home regimen. 7. Tobacco abuse. Patient was counseled daily on smoking cessation as well as the means to quit. HOSPITAL COURSE: Briefly, Mr. Smith is a 21-year-old male, known to our service for history of sickle cell. Patient reported to the ED when he began having lower back pain and bilateral lower extremity pain, as well as chest pain that began on the morning of his admission. Patient was last admitted in August, for sickle cell crisis. Patient was admitted and continued with supplemental O2, p.r.n. pain control, as well as IV hydration. Given his leukocytosis, his chest x-ray was clear. His urinalysis was negative. Blood cultures have also remained no growth after 48 hours. His hemoglobin and hematocrit was monitored closely. Hemodynamically, he has remained stable. He received 40 mEq potassium for his hypokalemia. He was counseled against smoking cessation daily as well as the means to quit. Dr. Everett has assessed the patient and feels he is appropriate for discharge today. PHYSICAL EXAMINATION: Vital signs at time of discharge: Temperature is 98 degrees, heart rate 74, respirations 16, blood pressure 121/71, O2 is 100% on room air. DISCHARGE DIET: Regular. DISCHARGE MEDICATIONS: 1. Atenolol inhaler 2 puffs inhaled t.i.d. 2. Hydroxyurea 500 mg p.o. daily. FOLLOWUP: The patient is being discharged home. He will need to follow up with his primary care physician. The patient has also been advised to get enough oxygen, drink plenty of fluids, avoid getting overheated or getting very cold, avoid getting infections and treat infections quickly when he does get them, and follow up with a PCP on a regular basis, as well as smoking cessation. DISCHARGE TIME: 30 minutes. Dictated by RAKESH Iyer for Jaylon Styles MD cc: Jaylon Styles MD
== END 2016-11-03 11:20 | disposition home or self-care (01) ==
LOC: ED 14:47 → SUATTDRO 11-02 01:06 → EDIPHOLD 11-02 02:12 → 3N 11-02 17:13
PROVIDERS: ATTEND Internal Medicine

== ENCOUNTER 2019-05-27 13:56 | Inpatient (IN) ==
[2019-05-27 14:43] LABS: BASO% 0.7 % (0.0-0.8); HEMATOCRIT 27.5 % (42.0-52.0); HEMOGLOBIN 9.6 g/dL (14.0-18.0); MCH 22.2 PG (27-31); MCHC 34.9 g/dL (33-37); MCV 63.7 FL (81-99); MPV 8.8 FL (7.4-10.4); PLT 297 X1000 (130-400); RBC 4.32 XMIL (4.7-6.1); RDW 22.4 % (11.5-14.5); WBC 14.08 X1000 (4.8-10.8)
[2019-05-27 14:56] LABS: AGAP 19; ALB/GLOB RATIO 1.5; ALBUMIN 4.8 g/dL (3.5-5.0); ALKALINE PHOSPHATASE 100 U/L (32-122); BUN 7 mg/dL (8-22); CALCIUM 9.3 mg/dL (8.8-10.2); CHLORIDE 101 mmol/L (98-107); COSMO 277; CREATININE 0.7 mg/dL (0.7-1.2); ESTIMATED GFR > 60; GLUCOSE 131 mg/dL (70-104); GOT 21 U/L (10-34); GPT 13 U/L (10-44); POTASSIUM 3.4 mmol/L (3.5-5.1); SODIUM 139 mmol/L (136-145); TCO2 19 mmol/L (25-35); TOTAL BILIRUBIN 2.03 mg/dL (0.20-1.00); TOTAL PROTEIN 8.1 g/dL (6.3-8.3)
[2019-05-27 15:10] LABS: BANDS 2 % (0-1); EOS 2 % (1-10); LYMPHS 56 % (21-51); MONO 5 % (1-9); NRBC 13 % (0-0); SEGS 30 % (42-75)
[2019-05-27 15:11] LABS: ANISOCYTOSIS 2+; HYPOCHROM 2+; MICROCYTOSIS 1+
[2019-05-27 15:12] LABS: SICKLE CELLS OCCASIONAL
[2019-05-27 16:14] LABS: URINE SOURCE CLEAN CATCH
[2019-05-27 16:23] LABS: BILIRUBIN URINE NEGATIVE (NEGATIVE); BLOOD URINE NEGATIVE (NEGATIVE); COLOR YELLOW; GLUCOSE URINE NEGATIVE (NEGATIVE); KETONE URINE NEGATIVE (NEGATIVE); LEUKOCYTES URINE NEGATIVE (NEGATIVE); NITRITE URINE NEGATIVE (NEGATIVE); PROTEIN URINE TRACE mg/dL (NEGATIVE); SP GRAVITY URINE 1.015; TURBIDITY URINE CLEAR (CLEAR); UR EPITHELIAL CELLS <10 /HPF (<10); URINE BACTERIA NEGATIVE /HPF; URINE RBC <10 /HPF (<10); URINE WBC <10 /HPF (<10); UROBILINOGEN URINE NORMAL (NORMAL)
[2019-05-27 16:42] LABS: UR AMPHETAMINES QUAL NONE DETECTED (NONE DETECT); UR BARBITUATES QUAL NONE DETECTED (NONE DETECT); UR BENZODIAZEPIN QUAL NONE DETECTED (NONE DETECT); UR CANNABINOIDS QUAL NONE DETECTED (NONE DETECT); UR COCAINE QUAL NONE DETECTED (NONE DETECT); UR METHADONE QUAL NONE DETECTED (NONE DETECT); UR OPIATES QUAL PRESUMPTIVE POSITIVE (NONE DETECT); UR OXYCODONE QUAL NONE DETECTED (NONE DETECT); UR PCP QUAL NONE DETECTED (NONE DETECT)
[2019-05-27 17:59] LABS: RETIC% 4.31 % (0.8-2.1); RETIC-HE 21.2 PG (28.2-36.6)
[2019-05-28 05:37] LABS: AGAP 14; BUN 5 mg/dL (8-22); CALCIUM 8.6 mg/dL (8.8-10.2); CHLORIDE 105 mmol/L (98-107); COSMO 275; CREATININE 0.6 mg/dL (0.7-1.2); ESTIMATED GFR > 60; GLUCOSE 105 mg/dL (70-104); POTASSIUM 3.7 mmol/L (3.5-5.1); SODIUM 139 mmol/L (136-145); TCO2 20 mmol/L (25-35)
[2019-05-28 05:53] LABS: BASO% 0.4 % (0.0-0.8); HEMATOCRIT 26.3 % (42.0-52.0); MCH 22.2 PG (27-31); MCHC 34.2 g/dL (33-37); MCV 64.9 FL (81-99); MPV 9.3 FL (7.4-10.4); PLT 232 X1000 (130-400); RBC 4.05 XMIL (4.7-6.1); RDW 22.1 % (11.5-14.5); WBC 22.98 X1000 (4.8-10.8)
[2019-05-28 07:02] LABS: ANISOCYTOSIS 2+; EOS 1 % (1-10); LYMPHS 24 % (21-51); MONO 4 % (1-9); NRBC 15 % (0-0); SEGS 71 % (42-75); SICKLE CELLS 1+
[2019-05-29 05:41] LABS: BASO# 0.04 X1000 (0.0-0.2); BASO% 0.2 % (0.0-0.8); HEMATOCRIT 23.1 % (42.0-52.0); HEMOGLOBIN 7.7 g/dL (14.0-18.0); MCH 21.8 PG (27-31); MCHC 33.3 g/dL (33-37); MCV 65.3 FL (81-99); MPV 8.9 FL (7.4-10.4); PLT 179 X1000 (130-400); RBC 3.54 XMIL (4.7-6.1); RDW 22.6 % (11.5-14.5); RETIC% 4.86 % (0.8-2.1); RETIC-HE 21.4 PG (28.2-36.6); WBC 17.05 X1000 (4.8-10.8)
[2019-05-30 06:13] LABS: HEMATOCRIT 23.4 % (42.0-52.0); MCH 23.2 PG (27-31); MCHC 34.2 g/dL (33-37); MCV 67.8 FL (81-99); MPV 9.4 FL (7.4-10.4); RBC 3.45 XMIL (4.7-6.1); RDW 24.4 % (11.5-14.5); WBC 15.47 X1000 (4.8-10.8)
[2019-05-30 06:30] LABS: AGAP 14; ALB/GLOB RATIO 1.2; ALBUMIN 3.6 g/dL (3.5-5.0); ALKALINE PHOSPHATASE 104 U/L (32-122); BUN 6 mg/dL (8-22); CALCIUM 8.4 mg/dL (8.8-10.2); CHLORIDE 102 mmol/L (98-107); COSMO 274; CREATININE 0.6 mg/dL (0.7-1.2); ESTIMATED GFR > 60; GLUCOSE 84 mg/dL (70-104); GOT 26 U/L (10-34); GPT 16 U/L (10-44); SODIUM 139 mmol/L (136-145); TCO2 23 mmol/L (25-35); TOTAL BILIRUBIN 7.92 mg/dL (0.20-1.00); TOTAL PROTEIN 6.7 g/dL (6.3-8.3)
[2019-05-30 07:02] LABS: RETIC% 6.82 % (0.8-2.1); RETIC-HE 21.3 PG (28.2-36.6)
[2019-05-30 14:26] LABS: URINE SOURCE CLEAN CATCH
[2019-05-30 14:30] LABS: BILIRUBIN URINE NEGATIVE (NEGATIVE); BLOOD URINE NEGATIVE (NEGATIVE); COLOR ORANGE; GLUCOSE URINE NEGATIVE (NEGATIVE); KETONE URINE 10 mg/dL (NEGATIVE); LEUKOCYTES URINE NEGATIVE (NEGATIVE); NITRITE URINE NEGATIVE (NEGATIVE); PROTEIN URINE NEGATIVE (NEGATIVE); SP GRAVITY URINE 1.015; TURBIDITY URINE CLEAR (CLEAR); UROBILINOGEN URINE NORMAL (NORMAL)
[2019-05-30 14:32] LABS: UR EPITHELIAL CELLS <10 /HPF (<10); URINE BACTERIA NEGATIVE /HPF; URINE RBC <10 /HPF (<10); URINE WBC <10 /HPF (<10)
[2019-05-30 14:39] LABS: URINE CRYSTALS NONE SEEN
[2019-05-31 05:59] LABS: BASO# 0.03 X1000 (0.0-0.2); BASO% 0.2 % (0.0-0.8); EOS# 0.29 X1000 (0.0-0.7); EOS% 2.4 % (0.0-10.0); HEMATOCRIT 21.8 % (42.0-52.0); HEMOGLOBIN 7.4 g/dL (14.0-18.0); IMM GRAN# 0.06 X1000 (0.0-0.04); IMM GRAN% 0.5 % (0.0-0.5); MCH 22.5 PG (27-31); MCHC 33.9 g/dL (33-37); MCV 66.3 FL (81-99); MONO% 12.3 % (1.7-9.3); MPV 9.3 FL (7.4-10.4); NEUT# 6.88 X1000 (1.4-6.5); NEUT% 56.6 % (42.2-75.2); PLT 148 X1000 (130-400); RBC 3.29 XMIL (4.7-6.1); RDW 23.1 % (11.5-14.5); WBC 12.16 X1000 (4.8-10.8)
[2019-05-31 06:02] LABS: AGAP 10; BUN 4 mg/dL (8-22); CHLORIDE 100 mmol/L (98-107); COSMO 267; CREATININE 0.5 mg/dL (0.7-1.2); ESTIMATED GFR > 60; GLUCOSE 94 mg/dL (70-104); POTASSIUM 3.2 mmol/L (3.5-5.1); SODIUM 135 mmol/L (136-145); TCO2 25 mmol/L (25-35)
[2019-05-31 06:10] LABS: RETIC% 5.53 % (0.8-2.1)
[2019-05-31 07:36] LABS: ANISOCYTOSIS 2+; BANDS 1 % (0-1); EOS 5 % (1-10); HYPOCHROM 3+; LYMPHS 27 % (21-51); MONO 8 % (1-9); NRBC 7 % (0-0); POIKILOCYTOSIS 4+; POLYCHROM OCCASIONAL; SEGS 59 % (42-75)
[2019-05-31 07:37] LABS: SICKLE CELLS 1+; TARGET CELLS 3+
[2019-06-01 06:03] LABS: BASO# 0.03 X1000 (0.0-0.2); BASO% 0.2 % (0.0-0.8); EOS# 0.27 X1000 (0.0-0.7); EOS% 2.1 % (0.0-10.0); HEMATOCRIT 21.2 % (42.0-52.0); HEMOGLOBIN 7.4 g/dL (14.0-18.0); IMM GRAN# 0.05 X1000 (0.0-0.04); IMM GRAN% 0.4 % (0.0-0.5); LYMPH% 23.8 % (20.5-51.1); MCH 23.3 PG (27-31); MCHC 34.9 g/dL (33-37); MCV 66.9 FL (81-99); MONO% 10.3 % (1.7-9.3); MPV 8.9 FL (7.4-10.4); NEUT# 7.96 X1000 (1.4-6.5); NEUT% 63.2 % (42.2-75.2); PLT 164 X1000 (130-400); RBC 3.17 XMIL (4.7-6.1); WBC 12.61 X1000 (4.8-10.8)
[2019-06-01 06:12] LABS: AGAP 12; BUN 3 mg/dL (8-22); CALCIUM 8.6 mg/dL (8.8-10.2); CHLORIDE 100 mmol/L (98-107); COSMO 268; CREATININE 0.5 mg/dL (0.7-1.2); ESTIMATED GFR > 60; GLUCOSE 93 mg/dL (70-104); POTASSIUM 3.4 mmol/L (3.5-5.1); SODIUM 136 mmol/L (136-145); TCO2 24 mmol/L (25-35)
[2019-06-01 07:55] LABS: LYMPHS 34 % (21-51); MONO 4 % (1-9); SEGS 60 % (42-75)
[2019-06-01 07:56] LABS: ANISOCYTOSIS 2+; HYPOCHROM 2+; MICROCYTOSIS 3+; POIKILOCYTOSIS 2+; TARGET CELLS 1+
[2019-06-01 07:57] LABS: SICKLE CELLS OCCASIONAL
[2019-06-02 05:48] LABS: AGAP 12; BUN 5 mg/dL (8-22); CALCIUM 8.5 mg/dL (8.8-10.2); CHLORIDE 101 mmol/L (98-107); COSMO 267; CREATININE 0.5 mg/dL (0.7-1.2); ESTIMATED GFR > 60; GLUCOSE 87 mg/dL (70-104); POTASSIUM 3.5 mmol/L (3.5-5.1); SODIUM 135 mmol/L (136-145); TCO2 22 mmol/L (25-35)
[2019-06-02 05:51] LABS: BASO# 0.03 X1000 (0.0-0.2); BASO% 0.3 % (0.0-0.8); HEMATOCRIT 21.2 % (42.0-52.0); HEMOGLOBIN 7.2 g/dL (14.0-18.0); MCH 22.7 PG (27-31); MCV 66.9 FL (81-99); MPV 9.2 FL (7.4-10.4); PLT 178 X1000 (130-400); RBC 3.17 XMIL (4.7-6.1); RDW 23.1 % (11.5-14.5); WBC 11.37 X1000 (4.8-10.8)
[2019-06-02 08:58] LABS: ANISOCYTOSIS 2+; EOS 4 % (1-10); HYPOCHROM 2+; LYMPHS 22 % (21-51); MICROCYTOSIS 3+; MONO 4 % (1-9); NRBC 2 % (0-0); POIKILOCYTOSIS 2+; SEGS 70 % (42-75); SICKLE CELLS OCCASIONAL; TARGET CELLS 2+
[2019-06-02 08:59] LABS: HOWELL-JOLLY BODIES OCCASIONAL; LARGE PLATELETS 1+
[2019-06-03 05:34] LABS: BASO# 0.05 X1000 (0.0-0.2); BASO% 0.5 % (0.0-0.8); EOS# 0.32 X1000 (0.0-0.7); HEMOGLOBIN 8.8 g/dL (14.0-18.0); IMM GRAN# 0.03 X1000 (0.0-0.04); IMM GRAN% 0.3 % (0.0-0.5); LYMPH% 32.8 % (20.5-51.1); MCH 23.7 PG (27-31); MCHC 33.8 g/dL (33-37); MCV 70.1 FL (81-99); MONO# 0.91 X1000 (0.11-0.59); MONO% 8.5 % (1.7-9.3); MPV 9.1 FL (7.4-10.4); NEUT# 5.85 X1000 (1.4-6.5); NEUT% 54.9 % (42.2-75.2); PLT 197 X1000 (130-400); RBC 3.71 XMIL (4.7-6.1); RDW 25.2 % (11.5-14.5); WBC 10.66 X1000 (4.8-10.8)
[2019-06-03 05:38] LABS: RETIC% 6.37 % (0.8-2.1); RETIC-HE 24.2 PG (28.2-36.6)
[2019-06-03 07:27] LABS: EOS 3 % (1-10); LYMPHS 27 % (21-51); MONO 3 % (1-9); NRBC 10 % (0-0); SEGS 67 % (42-75)
[2019-06-03 07:28] LABS: ANISOCYTOSIS 1+; HYPOCHROM 1+; MICROCYTOSIS 1+; OVALOCYTES 1+; POIKILOCYTOSIS 2+; POLYCHROM 1+; SICKLE CELLS 1+; TARGET CELLS 3+
[2019-06-03 11:27] VITALS: BP 134/79
== END 2019-06-03 16:25 | disposition home or self-care (01) | DRG 812 ==
LOC: ED 13:56 → 1N 18:27 → SUATTDRO 18:27
PROVIDERS: ATTEND Internal Medicine